=== PATIENT | male | born 1975 | race Two or more races ===

== ENCOUNTER 2023-05-04 09:42 | Emergency (ER) | payer OTHER ==
[~2023-05-04] VITALS: Ht 167.6 cm; Wt 136.1 kg
[2023-05-04] MEDS ORDERED: AVALIDE 300-121 EACH PO (10:23)
[2023-05-04] MEDS ORDERED: SYNTHROID200 MCG PO (10:23)
[2023-05-04] MEDS ORDERED: VAZALORE81 MG PO (10:24)
[2023-05-04] MEDS ORDERED: EZETIMIBE10 MG PO (10:24)
== END 2023-05-04 11:42 | disposition home or self-care (01) ==
LOC: ER 09:42
DX: M54.9 Dorsalgia, unspecified (principal)